=== PATIENT | male | born 1990 | race African-American/Black ===

== ENCOUNTER 2021-04-15 13:00 | Emergency (ER) | payer SELFPAY ==
[~2021-04-15] VITALS: Ht 180.3 cm; Wt 68.1 kg
[2021-04-15] MEDS ORDERED: ONDANSETRON PF 4 MG/2 ML VIAL. IVP ONE (19:15)
[2021-04-15] MEDS ORDERED: DEXAMETHASONE SOD PHOS 20 MG/5 ML VIAL. IV ONE (19:15)
[2021-04-15] MEDS ORDERED: IV NORMAL SALINE 1000ML BAG 1,000 ML IV ONE (19:15)
[2021-04-15 19:17] LABS: BASO % 1 % (0-3); EOS # 0.1 x10^3/uL (0.0-0.7); EOS % 3 % (0-3); HEMATOCRIT 47.4 % (39.0-53.0); HEMOGLOBIN 15.9 g/dL (13.0-17.5); LYMPH # 1.6 x10^3/uL (1.0-4.8); LYMPH % 47 % (24-48); MEAN CORPUSCULAR HEMOGLOBIN 30 pg (25-35); MEAN CORPUSCULAR HGB CONC 34 g/dL (31-37); MEAN CORPUSCULAR VOLUME 88 fL (79-100); MONO # 0.6 x10^3/uL (0.0-1.1); MONO % 16 % (0-9); NEUT # 1.2 x10^3/uL (1.8-7.7); NEUT % 33 % (31-73); PLATELET COUNT 168 x10^3/uL (140-400); RED BLOOD COUNT 5.36 x10^6/uL (4.30-5.70); RED CELL DISTRIBUTION WIDTH 14.3 % (11.5-14.5); WHITE BLOOD COUNT 3.5 x10^3/uL (4.0-11.0)
[2021-04-15 19:36] LABS: CREATININE 1.1 mg/dL (0.7-1.3); GFR 95.8; POTASSIUM 3.9 mmol/L (3.5-5.1)
[2021-04-15 19:41] LABS: TOTAL BILIRUBIN 0.3 mg/dL (0.2-1.0); TOTAL PROTEIN 8.2 g/dL (6.4-8.2)
--- NOTE | 2021-04-15 20:37 | RAD ---
XR CHEST 1V Clinical Indication: Reason: body aches / : Comparison: None. Findings: The cardiomediastinal silhouette is normal. Lungs are clear. There is no pneumothorax. No pleural eff usion is appreciated. No acute bone abnormality. IMPRESSION: No acute cardiopulmonary process. Electronically signed by: Stewart Duenas MD (04/15/2021 8:35 PM) [facility]
[2021-04-15] MEDS ORDERED: ONDA4TAB12 PO (21:28)
--- NOTE | 2021-04-15 21:29 | PHYS DOC ---
Past Medical History Past Surgical History: No Surgical History (VARGAS HERMOSILLO DREDGE OR [employer]GE [employer]ORE HAND) Smoking Status: Current Some Day Smoker Alcohol Use: Occasionally (VARGAS HERMOSILLO DREDGE OR [employer]) General Adult EDM: Chief Complaint: FLU SYMPTOM HPI: HPI: Patient is a 30 year old male with no significant medical history who presents to the ED today complaining of body aches, cough, vomiting, loss of taste and smell, symptoms have been going on for 3 days. Patient denies any chest pain or shortness of breath. He states he was at [facility] yesterday but they did not see him because they were too busy so he left AMA (JUANVARGAS Lewis DREDGE OR BARGE SHORE HAND) Review of Systems: Review of Systems: Constitutional: Reports body aches HENT: Denies nasal congestion or sore throat. [] Respiratory: Reports cough, denies shortness of breath. [] Cardiovascular: Denies chest pain or edema. [] GI: Reports vomiting denies abdominal pain, bloody stools or diarrhea. [] : Denies dysuria. [] Musculoskeletal: Denies back pain or joint pain. [] Integument: Denies rash. [] Neurologic: Denies headache, focal weakness or sensory changes. [] Psychiatric: Denies depression or anxiety. [] (VARGAS HERMOSILLO DREDGE OR [employer]GE [employer] HAND) Heart Score: C/O Chest Pain: N/A Risk Factors: Risk Factors: DM, Current or recent (<one month) smoker, HTN, HLP, family history of CAD, obesity. Risk Scores: Score 0 - 3: 2.5% MACE over next 6 weeks - Discharge Home Score 4 - 6: 20.3% MACE over next 6 weeks - Admit for Clinical Observation Score 7 - 10: 72.7% MACE over next 6 weeks - Early Invasive Strategies (VARGAS HERMOSILLO DREDGE OR [employer]GE [employer] HAND) Current Medications: Current Medications Medications (Trade) Dose Ordered Sig/Dieudonne Start Time Stop Time Status Last Admin Dose Admin Dexamethasone Sodium Phosphate (Decadron) 10 mg 1X ONCE 04/15/21 19:15 04/15/21 19:16 DC 04/15/21 19:15 10 MG Ondansetron HCl (Zofran) 4 mg 1X ONCE 04/15/21 19:15 04/15/21 19:16 DC 04/15/21 19:15 4 MG Sodium Chloride 1,000 ml @ 1,000 mls/hr 1X ONCE 04/15/21 19:15 04/15/21 20:14 DC 04/15/21 19:15 1,000 MLS/HR (VARGAS HERMOSILLO DREDGE OR [employer]GE [employer] HAND) Allergies: Allergies: Allergies Coded Allergies Type Severity Reaction Last Updated Verified No Known Drug Allergies 04/15/21 No (VARGAS HERMOSILLO DREDGE OR BARGE SHORE HAND) Physical Exam: PE: Constitutional: Well developed, well nourished, no acute distress, non-toxic appearance. [] HENT: Normocephalic, atraumatic, bilateral external ears normal, oropharynx moist, no oral exudates, nose normal. [] Eyes: PERRLA, EOMI, conjunctiva normal, no discharge. [] Neck: Normal range of motion, no tenderness, supple, no stridor. [] Cardiovascular:Heart rate regular rhythm, no murmur [] Lungs & Thorax: Bilateral breath sounds clear to auscultation [] Abdomen: Patient is actively vomiting in the ED. Bowel sounds normal, soft, no tenderness, no masses, no pulsatile masses. [] Skin: Warm, dry, no erythema, no rash. [] Back: No tenderness, no CVA tenderness. [] Extremities: No tenderness, no cyanosis, no clubbing, ROM intact, no edema. [] Neurologic: Alert and oriented X 3, normal motor function, normal sensory function, no focal deficits noted. [] Psychologic: Affect normal, judgement normal, mood normal. [] (VARGAS HERMOSILLO DREDGE OR [employer]GE [employer] HAND) Current Patient Data: Labs: Laboratory Tests Test 04/15/21 19:10 White Blood Count 3.5 x10^3/uL (4.0-11.0) L Red Blood Count 5.36 x10^6/uL (4.30-5.70) Hemoglobin 15.9 g/dL (13.0-17.5) Hematocrit 47.4 % (39.0-53.0) Mean Corpuscular Volume 88 fL (79-100) Mean Corpuscular Hemoglobin 30 pg (25-35) Mean Corpuscular Hemoglobin Concent 34 g/dL (31-37) Red Cell Distribution Width 14.3 % (11.5-14.5) Platelet Count 168 x10^3/uL (140-400) Neutrophils (%) (Auto) 33 % (31-73) Lymphocytes (%) (Auto) 47 % (24-48) Monocytes (%) (Auto) 16 % (0-9) H Eosinophils (%) (Auto) 3 % (0-3) Basophils (%) (Auto) 1 % (0-3) Neutrophils # (Auto) 1.2 x10^3/uL (1.8-7.7) L Lymphocytes # (Auto) 1.6 x10^3/uL (1.0-4.8) Monocytes # (Auto) 0.6 x10^3/uL (0.0-1.1) Eosinophils # (Auto) 0.1 x10^3/uL (0.0-0.7) Basophils # (Auto) 0.0 x10^3/uL (0.0-0.2) Sodium Level 137 mmol/L (136-145) Potassium Level 3.9 mmol/L (3.5-5.1) Chloride Level 100 mmol/L (98-107) Carbon Dioxide Level 30 mmol/L (21-32) Anion Gap 7 (6-14) Blood Urea Nitrogen 8 mg/dL (8-26) Creatinine 1.1 mg/dL (0.7-1.3) Estimated GFR (Cockcroft-Gault) 95.8 BUN/Creatinine Ratio 7 (6-20) Glucose Level 112 mg/dL (70-99) H Calcium Level 9.0 mg/dL (8.5-10.1) Magnesium Level 2.0 mg/dL (1.8-2.4) Total Bilirubin 0.3 mg/dL (0.2-1.0) Aspartate Amino Transferase (AST) 28 U/L (15-37) Alanine Aminotransferase (ALT) 17 U/L (16-63) Alkaline Phosphatase 79 U/L (46-116) Total Protein 8.2 g/dL (6.4-8.2) Albumin 4.0 g/dL (3.4-5.0) Albumin/Globulin Ratio 1.0 (1.0-1.7) Thyroid Stimulating Hormone (TSH) 3.291 uIU/mL (0.358-3.74) SARS-CoV-2 Antigen (Rapid) Positive (NEGATIVE) *A Laboratory Tests 04/15/21 19:10 Laboratory Tests 04/15/21 19:10 Vital Signs: Vital Signs Date Time Temp Pulse Resp B/P (MAP) Pulse Ox O2 Delivery O2 Flow Rate FiO2 04/15/21 19:10 98.6 57 18 144/92 100 Room Air 98.6 (VARGAS HERMOSILLO DREDGE OR [employer]) EKG: EKG: [] (VARGAS HERMOSILLO APRN) Radiology/Procedures: Radiology/Procedures: []PROCEDURE: PORTABLE CHEST 1V XR CHEST 1V Clinical Indication: Reason: body aches / : Comparison: None. Findings: The cardiomediastinal silhouette is normal. Lungs are clear. There is no pneumothorax. No pleural effusion is appreciated. No acute bone abnormality. IMPRESSION: No acute cardiopulmonary process. Electronically signed by: Stewart Duenas MD (04/15/2021 8:35 PM) [facility] DICTATED and SIGNED BY: STEWART DUENAS MD DATE: 04/15/[id number] 0 (VARGAS HERMOSILLO DREDGE OR BARGE SHORE HAND) Course & Med Decision Making: Course & Med Decision Making Pertinent Labs and Imaging studies reviewed. (See chart for details) This is a 22-year-old male patient presented complaining of body aches, vomiting, cough, symptoms for 3 days. Patient arrives in the ED actively vomiting. Was given IV fluids, Zofran, Decadron, currently feeling better. Chest x-ray is negative for any acute findings. CBC with a WBC of 3.5, CMP with no acute findings. Positive for COVID-19 Patient feels better after hydration in the ED. Was discharged to home. Supportive care measures recommended. Provided return precautions. (VARGAS HERMOSILLO DREDGE OR [employer]) Course & Med Decision Making I have participated in the care of this patient and I have reviewed and agree with all pertinent clinical information above including history, exam, and recommendations. Dean Pope DO (DEAN POPE DO) Edvin Disclaimer: Edvin Disclaimer: This electronic medical record was generated, in whole or in part, using a voice recognition dictation system. (VARGAS HERMOSILLO DREDGE OR [employer]GE [employer] HAND) Departure Departure Impression: Primary Impression: Lab test positive for detection of COVID-19 virus Additional Impressions: Vomiting Qualified Codes: R11.10 - Vomiting, unspecified Cough Disposition: HOME / SELF CARE / HOMELESS Condition: STABLE Referrals: NO PCP (PCP) follow up with your doctor in one week Patient Instructions: Cough, Adult, [id number], Nausea and Vomiting Additional Instructions: You were evaluated in the emergency room and noted to have COVID-19. This is a viral illness, it ran its own course. We highly encourage you to quarantine yourself for 14 days. Please push fluids, rest, maintain good hand hygiene. T kelton Tylenol or Motrin for pain or fever. We will send a prescription for Zofran to pharmacy. Take it as needed for vomiting or nausea. Follow-up with your doctor next week Scripts Ondansetron (ONDANSETRON ODT) 4 Mg Tab.rapdis 1 TAB PO PRN Q6-8HRS, #16 TAB Prov: VARGAS HERMOSILLO APRN 04/15/21 VARGAS HERMOSILLO APRN Apr 15, 2021 21:28 DEAN POPE DO Apr 16, 2021 00:17
[2021-04-15 21:42] VITALS: BP 136/80
== END 2021-04-15 22:08 | disposition home or self-care (01) ==
LOC: ER 13:00
DX: U07.1 COVID-19 (principal); R11.10 Vomiting, unspecified; F17.200 Nicotine dependence, unspecified, uncomplicated
CPT/HCPCS: 36415; 71045; 80053; 83735; 84443; 85025; 87426; 96361; 96374; 96375; 99284; J1100; J2405; J7030